=== PATIENT | female | born 1975 ===

== ENCOUNTER 2022-11-02 07:48 | Outpatient (CLI) | payer OTHER ==
[~2022-11-02 07:48] MED LIST: CIPRO500 MG PO; D3 + K2 DOTS 11 EACH PO; HYDROXYCHLOROQ200 MG PO; IBUPROFEN800 MG PO; METHOTREXATE2.5 MG; MILLIPRED5 MG PO; PREDNISONE20 M1; TANDEM PLUS CA1 EACH PO; TREXALL5 MG PO; VITAMIN D3250 MC1
== END 2022-11-02 07:57 | disposition home or self-care (01) ==
LOC: RAD 07:48
DX: Z01.818 Encounter for other preprocedural examination (principal); Z01.811 Encounter for preprocedural respiratory examination

== ENCOUNTER 2022-12-02 05:35 | Day surgery (SDC) | payer OTHER | END 2022-12-02 14:00 | disposition home or self-care (01) | LOC: CIR.AMB 05:35 | PROVIDERS: ATTEND Surgery Surgery of the Hand | DX: M65.842 Other synovitis and tenosynovitis, left hand (principal); M77.8 Other enthesopathies, not elsewhere classified; Z86.16 Personal history of COVID-19; Z20.822 Contact with and (suspected) exposure to COVID-19 ==